=== PATIENT | female | born 1995 | race Caucasian/White ===

== ENCOUNTER 2016-06-21 14:18 | Emergency (ER) | payer MEDICAID ==
--- NOTE | 2016-06-21 14:32 | ER Document Report ---
ED Medical Screen (RME) - General Stated Complaint: SUICIDAL IDEATION Time seen by provider: 14:30 Mode of Arrival: Ambulatory Information source: Patient Notes: 21 yo female presents to ed for suicidal thoughts for years, today she is having a mental breakdown. Plans to use a gun and has access to one. TRAVEL OUTSIDE OF THE [place] 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
[2016-06-21 15:00] LABS: ABSOLUTE BASOPHILS # (AUTO) 0.1 10^3/uL (0.0-0.2); ABSOLUTE EOSINOPHILS # (AUTO) 0.1 10^3/uL (0.0-0.6); ABSOLUTE LYMPHOCYTES (AUTO) 1.5 10^3/uL (0.5-4.7); ABSOLUTE MONOCYTES (AUTO) 0.5 10^3/uL (0.1-1.4); ABSOLUTE NEUT (AUTO) 4.1 10^3/uL (1.7-8.2); BASOPHILS % (AUTO) 0.9 % (0-2); EOSINOPHILS % (AUTO) 0.8 % (0-6); HEMATOCRIT 44.1 % (36.0-47.0); HEMOGLOBIN 15.1 g/dL (12.0-15.5); HGB HCT DIFFERENCE 1.2; LYMPHOCYTES % (AUTO) 24.1 % (13-45); MEAN CORPUSCULAR HEMOGLOBIN 28.5 pg (27.0-33.4); MEAN CORPUSCULAR HGB CONC 34.2 g/dL (32.0-36.0); MEAN CORPUSCULAR VOLUME 83 fl (80-97); MONOCYTES % (AUTO) 8.3 % (3-13); RED BLOOD COUNT 5.29 10^6/uL (3.72-5.28); SEGMENTED NEUTROPHILS % (AUTO) 65.9 % (42-78); WHITE BLOOD COUNT 6.2 10^3/uL (4.0-10.5)
[2016-06-21 15:11] LABS: APPEARANCE,URINE SLIGHTLY-CLOUDY; BILIRUBIN,URINE NEGATIVE (NEGATIVE); GLUCOSE, URINE NEGATIVE (NEGATIVE); KETONES,URINE NEGATIVE (NEGATIVE); LEUKOCYTE ESTERASE,URINE NEGATIVE (NEGATIVE); NITRITE,URINE NEGATIVE (NEGATIVE); PROTEIN,URINE NEGATIVE (NEGATIVE); URINE SPECIFIC GRAVITY 1.004; UROBILINOGEN,URINE NEGATIVE mg/dL (<2.0)
[2016-06-21 15:19] LABS: ALANINE AMINOTRANSFERASE 34 U/L (9-52); ALCOHOL 35 mg/dL (NONE DETECTED); ALKALINE PHOSPHATASE 67 U/L (38-126); ANION GAP 15 (5-19); ASPARTATE AMINO TRANSFERASE 20 U/L (14-36); BILIRUBIN,TOTAL 0.7 mg/dL (0.2-1.3); BLOOD UREA NITROGEN 7 mg/dL (7-20); CALCIUM 10.2 mg/dL (8.4-10.2); CARBON DIOXIDE 23 mmol/L (22-30); CHLORIDE 107 mmol/L (98-107); CREATININE RESULT 0.65 mg/dL (0.52-1.25); GLUCOSE 71 mg/dL (75-110); POTASSIUM 4.2 mmol/L (3.6-5.0); SODIUM 145.1 mmol/L (137-145)
[2016-06-21 15:26] LABS: URINE BARBITURATES SCREEN NEGATIVE; URINE METHADONE SCREEN NEGATIVE; URINE PHENCYCLIDINE SCREEN NEGATIVE
[2016-06-21] MEDS ORDERED: FLUOXETINE HCL 20 MG CAPSULE PO ONE (19:17)
--- NOTE | 2016-06-21 19:21 | ER Document Report ---
ED General - General Chief Complaint: Suicidal Ideation Stated Complaint: SUICIDAL IDEATION Mode of Arrival: Ambulatory Notes: Patient is a 21-year-old female past medical history of anxiety and depression not currently on any medical therapies and apparently has not been on medications in the past who presents with suicidal ideation with a plan. Patient has access to a firearm and states that she planned to shoot herself. Her boyfriend apparently removed the gun from her possession today after she made this threat. States she has tried to hurt herself in the past by hanging approximately 2 years ago. She has never been hospitalized for mental health reasons. She denies any cause of the acute worsening of her suicidal thoughts or depression. Nothing seems to improve her symptoms. She denies any acute medical complaints. She has not seen a psychiatrist or primary care physician regarding today's concerns. TRAVEL OUTSIDE OF THE [place] 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 HENT: Negative for sore throat. Eyes: Negative for visual changes. Cardiovascular: Negative for chest pain. Respiratory: Negative for shortness of breath. Gastrointestinal: Negative for abdominal pain, vomiting or diarrhea. Genitourinary: Negative for dysuria. Musculoskeletal: Negative for back pain. Skin: Negative for rash. Neurological: Negative for headaches, weakness or numbness. 10 point ROS negative except as marked above and in HPI. Physical Exam - Vital signs Vitals: Temp Pulse Resp BP Pulse Ox 97.7 F 80 16 110/74 98 06/21/16 14:27 06/21/16 14:27 06/21/16 14:27 06/21/16 14:27 06/21/16 14:27 Interpretation: Normal Notes: PHYSICAL EXAMINATION: GENERAL: Well-appearing, well-nourished and in no acute distress. HEAD: Atraumatic, normocephalic. EYES: Pupils equal round and reactive to light, extraocular movements intact, sclera anicteric, conjunctiva are normal. ENT: nares patent, oropharynx clear without exudates. Moist mucous membranes. NECK: Normal range of motion, supple without lymphadenopathy LUNGS: Breath sounds clear to auscultation bilaterally and equal. No wheezes rales or rhonchi. HEART: Regular rate and rhythm without murmurs ABDOMEN: Soft, nontender, normoactive bowel sounds. No guarding, no rebound. No masses appreciated. EXTREMITIES: Normal range of motion, no pitting or edema. No cyanosis. NEUROLOGICAL: No focal neurological deficits. Moves all extremities spontaneously and on command. PSYCH: Depressed mood and affect. Poor eye contact. SKIN: Warm, Dry, normal turgor, no rashes or lesions noted. Course - Re-evaluation Re-evalutation: 06/21/16 19:18 She presents with suicidal ideation with a plan to shoot herself. Her boyfriend did remove her personal gun from her possession and states at this time given that she has no active mechanism to harm herself she is no longer suicidal. However patient does admit to a long-standing history of severe depression and anxiety which has never been treated with medical therapies in the past. She is also had multiple prior suicide attempts including 2 years ago by hanging. Patient meets clear criteria for diagnosis of major depressive disorder including daily hopelessness, lack of enjoyment her regular activities , lack of energy, and frequent suicidal thoughts. Given that she is not actively suicidal at this time, I do not believe she meets IVC criteria as she explicitly denies SI or plan at this time. However, patient is in agreement to staying in the emergency department for evaluation the morning. Patient denies any acute medical complaints and her medical screening laboratories are otherwise unremarkable. She is medically cleared for psychiatric evaluation. - Vital Signs Vital signs: Temp Pulse Resp BP Pulse Ox 97.9 F 95 18 110/78 100 06/21/16 18:13 06/21/16 18:13 06/21/16 18:13 06/21/16 18:13 06/21/16 18:13 - Laboratory Result Diagrams: 06/21/16 14:35 06/21/16 14:35 Laboratory results interpreted by me: 06/21/16 06/21/16 06/21/16 14:35 14:35 14:35 RBC 5.29 H Sodium 145.1 H Glucose 71 L Urine Blood LARGE H Salicylates < 1.0 L Acetaminophen < 10 L Discharge - Discharge Clinical Impression: Suicidal ideation Condition: Fair Disposition: PSYCH HOSP/UNIT Prescriptions: Fluoxetine HCl 20 mg PO DAILY #60 capsule Referrals: MARIA VICTORIA POLO MD [Primary Care Provider] - Follow up as needed
--- NOTE | 2016-06-21 19:48 | EKG REPORT ---
SEVERITY:- ABNORMAL ECG - SINUS RHYTHM ATRIAL PREMATURE COMPLEXES LEFT AXIS DEVIATION LEFT VENTRICULAR HYPERTROPHY : Confirmed by: Pamela Padgett 21-Jun-2016 19:48:20
--- NOTE | 2016-06-22 14:09 | ER Document Report ---
Doctor's Note Notes: 06/22/16 14:08 Case discussed with mental health worker. Patient has an appointment at [facility] on the and is once again reporting no suicidal homicidal ideations or audiovisual hallucinations. She is safe for discharge and outpatient follow-up next week
[2016-06-22 14:45] VITALS: BP 117/79
--- NOTE | 2016-06-24 10:30 | PSYCHOLOGICAL NOTE ---
Psych Note - Psych Note Psych Note: Patient presented to [facility] ED with suicidal ideation with a plan to shoot herself. Patient disclosed long-standing history of severe depression and anxiety which has never been treated with medical therapies in the past. She reports multiple prior suicide attempts including 2 years ago by hanging. Patient states that she had a plan and means to commit suicide; but is no longer suicidal. She continued to disclose that she had the gun and sent the picture of the gun to her boyfriend then sat and drank until he arrived. She continued to disclose that she has been feeling like this for a couple of years but normally her boyfriend is there to stop her. She states that because they argued he wasn't there at the time. Clinician confirmed patients at and waited for boyfriend to show up patient confirmed. Patient was unable to remember what the argument was about. When asked about previous events patient confirmed that she thought about hanging herself but didn't follow through. Clinician notes patient stated to physician that she attempted to kill herself by hanging. No rodriguez are visible on patients neck. Patience boyfriend Dillon disclose this is not the first time she has threatened suicide. They do have a appointment for her at [facility] on Saturday. Dillon agreed to be patient safety resource and has removed all weapons from the home. Patient is alert and oriented to person place time and Circumstance. Mood is euthymic with congruent affect period while patient denies homicidal ideation she endorses suicidal ideation. Commission notes that while patient states she had a plan and a means patient had no intent. Patient denies auditory and visual hallucinations. No delusions are noted. Thought process is logical organized and linear. Conversational speech is within normal rate tone and porosity. Eye contact was well-maintained. Intellectual abilities appear to be within normal range. Attention and concentration are fair. Insight, judgment, impulse control are fair. Depression per historyreported by patient Anxiety per history reported by patient Impression plan patient is psychiatrically cleared for discharge. While patient states she's suicidal with plan and means patient demonstrated no intent. Patient disclosed she and her boyfriend got into a argument and he wasn't home so she text him the picture so he would come home demonstrating manipulating behavior. Patient has mental health services out in the community with an appointment on Saturday. Patient is psychiatrically cleared for discharge Dr. Angel was consulted on this patient attending physician is in agreement with recommendations and disposition.
== END 2016-06-22 14:38 | disposition home or self-care (01) ==
LOC: ER 14:18
DX: F32.9 Major depressive disorder, single episode, unspecified (principal); R45.851 Suicidal ideations; Z91.5 Personal history of self-harm
CPT/HCPCS: 93005; 99285; 36415; 80307 ×4; 85025; 80053; 81001; 93010; J3490

== ENCOUNTER 2016-12-06 12:34 | Emergency (ER) | payer MEDICAID, OTHER ==
[2016-12-06] MEDS ORDERED: ONDANSETRON 4 MG TAB.RAPDIS PO ONE (13:24)
--- NOTE | 2016-12-06 13:26 | ER Document Report ---
ED Medical Screen (RME) - General Chief Complaint: Nausea/Vomiting Stated Complaint: VOMITING Time Seen by Provider: 12/06/16 13:19 Notes: Patient is complaining of vomiting since about midnight. After she has been vomiting a few times, she has noticed some blood in the vomitus. Total vomiting about 6 times. Has developed some pain in the right lower abdominal region. No diarrhea. Patient is , LMP 4/16. Only medication is vitamins. History of appendectomy. TRAVEL OUTSIDE OF THE [place] 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
[2016-12-06 14:01] LABS: ABSOLUTE LYMPHOCYTES (AUTO) 1.1 10^3/uL (0.5-4.7); ABSOLUTE MONOCYTES (AUTO) 0.6 10^3/uL (0.1-1.4); ABSOLUTE NEUT (AUTO) 8.8 10^3/uL (1.7-8.2); BASOPHILS % (AUTO) 0.4 % (0-2); EOSINOPHILS % (AUTO) 0.1 % (0-6); HEMATOCRIT 44.5 % (36.0-47.0); HGB HCT DIFFERENCE 0.5; LYMPHOCYTES % (AUTO) 10.4 % (13-45); MEAN CORPUSCULAR HEMOGLOBIN 28.9 pg (27.0-33.4); MEAN CORPUSCULAR HGB CONC 33.6 g/dL (32.0-36.0); MEAN CORPUSCULAR VOLUME 86 fl (80-97); RED BLOOD COUNT 5.18 10^6/uL (3.72-5.28); RED CELL DISTRIBUTION WIDTH 14.3 % (11.5-14.0); SEGMENTED NEUTROPHILS % (AUTO) 83.1 % (42-78); WHITE BLOOD COUNT 10.5 10^3/uL (4.0-10.5)
[2016-12-06 14:18] LABS: APPEARANCE,URINE CLOUDY; BILIRUBIN,URINE NEGATIVE (NEGATIVE); GLUCOSE, URINE NEGATIVE (NEGATIVE); KETONES,URINE 20 mg/dL (NEGATIVE); LEUKOCYTE ESTERASE,URINE NEGATIVE (NEGATIVE); NITRITE,URINE NEGATIVE (NEGATIVE); PROTEIN,URINE 30 mg/dL (NEGATIVE); URINE SPECIFIC GRAVITY 1.028; UROBILINOGEN,URINE NEGATIVE mg/dL (<2.0)
[2016-12-06 14:23] LABS: ALANINE AMINOTRANSFERASE 65 U/L (9-52); ALBUMIN 4.7 g/dL (3.5-5.0); ALKALINE PHOSPHATASE 77 U/L (38-126); ANION GAP 14 (5-19); ASPARTATE AMINO TRANSFERASE 36 U/L (14-36); BILIRUBIN,DIRECT 0.3 mg/dL (0.0-0.4); BILIRUBIN,TOTAL 0.8 mg/dL (0.2-1.3); BLOOD UREA NITROGEN 9 mg/dL (7-20); CALCIUM 10.1 mg/dL (8.4-10.2); CARBON DIOXIDE 22 mmol/L (22-30); CHLORIDE 103 mmol/L (98-107); CREATININE RESULT 0.54 mg/dL (0.52-1.25); GLUCOSE 78 mg/dL (75-110); LIPASE 110.9 U/L (23-300); POTASSIUM 4.4 mmol/L (3.6-5.0); SODIUM 139.3 mmol/L (137-145); TOTAL PROTEIN 8.1 g/dL (6.3-8.2)
[2016-12-06] MEDS ORDERED: NORMAL SALINE 1000 ML 1,000 ML IV PRN (14:31)
[2016-12-06] MEDS ORDERED: DEXTROSE 5%-NORMAL SALINE 1,000 ML IV ONE ×2 (14:56→14:57)
[2016-12-06] MEDS ORDERED: DIPHENHYDRAMINE HCL 50 MG/ML VIAL IV ONE (14:58)
[2016-12-06] MEDS ORDERED: METOCLOPRAMIDE HCL INJ/PF 10 MG/2 ML SDV IV ONE (14:58)
--- NOTE | 2016-12-06 15:00 | ER Document Report ---
ED General - General Chief Complaint: Nausea/Vomiting Stated Complaint: VOMITING Time Seen by Provider: 12/06/16 13:19 Mode of Arrival: Ambulatory Information source: Patient Notes: This is a 21-year-old female 3 para 1 approximately 8-9 weeks ( found out at the health department). Patient presents with multiple episodes of vomiting, not tolerating fluids. Patient states he was small amount of blood in the last time she vomited. TRAVEL OUTSIDE OF THE [place] IN LAST 30 DAYS: No - HPI Onset: Yesterday Onset/Duration: Gradual Quality of pain: Cramping Severity: None Pain Level: Denies Associated symptoms: denies: Chest pain, Fever, Shortness of breath Exacerbated by: Denies Relieved by: Denies Similar symptoms previously: No Recently seen / treated by doctor: No - Related Data Allergies/Adverse Reactions: No Known Allergies Allergy (Verified 12/06/16 12:51) Past Medical History - General Information source: Patient - Social History Smoking Status: Never Smoker Cigarette use (# per day): No Chew tobacco use (# tins/day): No Frequency of alcohol use: None Drug Abuse: None Lives with: Family Family History: Reviewed & Not Pertinent Patient has suicidal ideation: No Patient has homicidal ideation: No - Medical History Medical History: Negative Renal/ Medical History: Denies: Hx Peritoneal Dialysis Past Surgical History: Reports: Hx Appendectomy, Hx Cardiac Surgery - 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 that were repai - Immunizations Hx Diphtheria, Pertussis, Tetanus Vaccination: No Review of Systems - Review of Systems Constitutional: denies: Chills, Fever EENT: No symptoms reported Cardiovascular: No symptoms reported Respiratory: No symptoms reported Gastrointestinal: See HPI Genitourinary: No symptoms reported Female Genitourinary: No symptoms reported Musculoskeletal: No symptoms reported Skin: No symptoms reported Hematologic/Lymphatic: No symptoms reported Neurological/Psychological: No symptoms reported Physical Exam - Vital signs Vitals: Temp Pulse Resp BP Pulse Ox 98.5 F 64 16 126/75 H 98 12/06/16 12:51 12/06/16 12:51 12/06/16 12:51 12/06/16 12:51 12/06/16 12:51 Notes: Physical exam: GENERAL: 21-year-old female, alert and oriented 3, no acute distress HEAD: Atraumatic, normocephalic. EYES: Pupils equal round and reactive to light, extraocular movements intact, sclera anicteric, conjunctiva are normal. ENT: TMs normal, nares patent, oropharynx clear without exudates. Moist mucous membranes. NECK: Normal range of motion, supple without lymphadenopathy or JVD. LUNGS: Breath sounds clear to auscultation bilaterally and equal. No wheezes rales or rhonchi. HEART: Regular rate and rhythm without murmurs, rubs or gallops. ABDOMEN: Soft, normoactive bowel sounds. No tenderness to palpation. No guarding, no rebound. No masses appreciated. EXTREMITIES: Normal range of motion, no pitting or edema. No clubbing or cyanosis. NEUROLOGICAL: Cranial nerves II through XII grossly intact. Normal speech, normal gait. PSYCH: Normal mood, normal affect. SKIN: Warm, Dry, normal turgor, no rashes or lesions noted. Course - Re-evaluation Re-evalutation: 12/06/16 22:34 Looks much better after IV fluids, she has had no further vomiting. - Vital Signs Vital signs: Temp Pulse Resp BP Pulse Ox 98.3 F 60 16 111/56 L 100 12/06/16 19:35 12/06/16 19:35 12/06/16 19:35 12/06/16 19:35 12/06/16 19:35 - Laboratory Result Diagrams: 12/06/16 13:35 12/06/16 13:35 Laboratory results interpreted by me: 12/06/16 12/06/16 12/06/16 13:35 13:35 13:35 RDW 14.3 H Seg Neutrophils % 83.1 H Lymphocytes % 10.4 L Absolute Neutrophils 8.8 H ALT 65 H Beta HCG, Quant 865759.00 H Urine Protein 30 H Urine Ketones 20 H - Diagnostic Test Radiology reviewed: Image reviewed, Reports reviewed - Sound shows an intrauterine gestation at 7 weeks 2 days with good heartbeat Discharge - Discharge Clinical Impression: Hyperemesis gravidarum Condition: Stable Disposition: HOME, SELF-CARE Instructions: Hyperemesis Gravidarum ([facility]) Additional Instructions: We discussed, the ultrasound revealed a 7 week gestation baby in the right place with a good heartbeat. These are good findings. Recommendations for nausea in : Drink plenty of fluids. Advance diet slowly. Eat small, frequent meals. The following have been found helpful for nausea in : Vitamin B 6 Unisom (sold [id number]): The active ingredient is Doxylamine. Peppermint and ruslan products. Sea bands. Take Reglan and benadryl as needed for nausea. Return to the ER for worsening vomiting, not able to tolerate liquids or concerns are getting worse. Prescriptions: Diphenhydramine HCl [Benadryl] 25 mg PO Q6HP PRN #20 capsule PRN Reason: Metoclopramide HCl [Reglan 10 mg Tablet] 1 - 2 tab PO ASDIR PRN #25 tablet PRN Reason: Referrals: MARIA VICTORIA POLO MD [Primary Care Provider] - Follow up in 1 week
--- NOTE | 2016-12-06 18:20 | RADIOLOGY REPORT (SQ) ---
EXAM DESCRIPTION: U/S OB TRANSVAG W/DOPPLER COMPLETED DATE/TIME: 12/06/2016 6:05 pm REASON FOR STUDY: first tri vomiting, cramping COMPARISON: None. TECHNIQUE: Transvaginal static and realtime grayscale images acquired of the pelvis. Additional vicky cted spectral and color Doppler images recorded. All images stored on PACs. [id number] LIMITATIONS: None. FINDINGS: FETUS: Living intrauterine . EGA: 7 weeks 2 days KANE: 07/23/2017 FHR: 141 beats per minute. SUBCHORIONIC BLEED: Yes SIZE OF BLEED: 3.4 x 2.4 x 1.1 cm UTERUS: No masses. No anomalies. CERVICAL LENGTH: 3.5 cm Closed. RIGHT ADNEXA: Normal ovary with normal vascular flow. No adnexal free fluid. No adnexal masses. LEFT ADNEXA: Normal ovary with normal vascular flow. No adnexal free fluid. No adnexal masses. FREE FLUID: None. OTHER: No other significant finding. IMPRESSION: LIVING INTRAUTERINE . EGA 7 weeks 2 days Trimester of : First - 0 to 13 weeks. TECHNICAL DOCUMENTATION: JOB ID: [id number] [employer]- All Rights Reserved
[2016-12-06 19:40] VITALS: BP 111/56
== END 2016-12-06 19:45 | disposition home or self-care (01) ==
LOC: ER 12:34
DX: O21.0 Mild hyperemesis gravidarum (principal); Z3A.01 Less than 8 weeks gestation of pregnancy
CPT/HCPCS: 99284; 96375; 96365; 96366; 36415; 84702; 83690; 85025; 80053; 81001; 76817; 93976; J1200; S0119; J2765

== ENCOUNTER 2017-05-21 22:51 | Outpatient (CLI) | payer MEDICAID ==
[2017-05-21 23:38] LABS: APPEARANCE,URINE CLOUDY; BILIRUBIN,URINE NEGATIVE (NEGATIVE); GLUCOSE, URINE NEGATIVE (NEGATIVE); KETONES,URINE TRACE mg/dL (NEGATIVE); LEUKOCYTE ESTERASE,URINE NEGATIVE (NEGATIVE); NITRITE,URINE NEGATIVE (NEGATIVE); PROTEIN,URINE 30 mg/dL (NEGATIVE)
[2017-05-21 23:42] LABS: BACTERIA,URINE 3+ /HPF; RBC,URINE RARE /HPF
[2017-05-21 23:46] LABS: URINE BARBITURATES SCREEN NEGATIVE; URINE METHADONE SCREEN NEGATIVE; URINE OPIATES LOW NEGATIVE; URINE PHENCYCLIDINE SCREEN NEGATIVE
== END 2017-05-22 00:17 | disposition home or self-care (01) ==
LOC: LC 22:51
PROVIDERS: ATTEND Obstetrics & Gynecology
PROC: 4A1HXCZ Monitoring of Products of Conception, Cardiac Rate, External Approach (ICD-10-PCS; principal; 2017-05-21)
DX: O47.03 False labor before 37 completed weeks of gestation, third trimester (principal); Z3A.31 31 weeks gestation of pregnancy
CPT/HCPCS: 59025; 80307; 81001

== ENCOUNTER 2017-05-29 13:51 | Emergency (ER) | payer MEDICAID ==
[2017-05-29 13:57] VITALS: BP 115/65
--- NOTE | 2017-05-29 14:39 | ER Document Report ---
ED ENT - General Chief Complaint: Difficulty Swallowing Stated Complaint: PAIN WHEN SWALLOWING Time Seen by Provider: 05/29/17 14:35 Mode of Arrival: Ambulatory Information source: Patient Notes: Patient reports 2-3 days of central chest pain and a nonproductive cough. Some nausea. Some sore throat with swallowing. Her pain is worse with coughing or moving better with rest. It is intermittent. It is mild to moderate. There is no significant radiation of the pain. She has had some low-grade fevers and sweats. She is currently 32 weeks but has no abdominal pain or vaginal bleeding. TRAVEL OUTSIDE OF THE [place] 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 denies: Short of breath Physical Exam - Vital signs Vitals: Temp Pulse Resp BP Pulse Ox 98.2 F 104 H 18 115/65 97 05/29/17 13:56 05/29/17 13:56 05/29/17 13:56 05/29/17 13:56 05/29/17 13:56 Interpretation: Tachycardic - General General appearance: Appears well, Alert In distress: None - HEENT Head: Normocephalic, Atraumatic Eyes: Normal Pupils: PERRL Mouth/Lips: Normal Mucous membranes: Moist Pharynx: Erythema. No: Exudate Neck: Normal - Respiratory Respiratory status: No respiratory distress Chest status: Nontender Breath sounds: Normal Chest palpation: Normal - Cardiovascular Rhythm: Regular Heart sounds: Normal auscultation Murmur: No - Abdominal Inspection: Normal Distension: No distension Bowel sounds: Normal Tenderness: Nontender Organomegaly: No organomegaly - Back Back: Normal, Nontender - Extremities General upper extremity: Normal inspection, Nontender, Normal color, Normal ROM , Normal temperature General lower extremity: Normal inspection, Nontender, Normal color, Normal ROM , Normal temperature, Normal weight bearing. No: Edilberto's sign - Neurological Neuro grossly intact: Yes Cognition: Normal Orientation: AAOx4 [place] Coma Scale Eye Opening: Spontaneous [place] Coma Scale Verbal: Oriented [place] Coma Scale Motor: Obeys Commands [place] Coma Scale Total: 15 Speech: Normal Motor strength normal: LUE, RUE, LLE, RLE Sensory: Normal - Psychological Associated symptoms: Normal affect, Normal mood - Skin Skin Temperature: Warm Skin Moisture: Dry Skin Color: Normal Course - Vital Signs Vital signs: Temp Pulse Resp BP Pulse Ox 98.2 F 104 H 18 115/65 97 05/29/17 13:56 05/29/17 13:56 05/29/17 13:56 05/29/17 13:56 05/29/17 13:56 Discharge - Discharge Clinical Impression: URI (upper respiratory infection) Qualifiers: URI type: unspecified URI Qualified Code(s): J06.9 - Acute upper respiratory infection, unspecified Condition: Stable Disposition: HOME, SELF-CARE Instructions: Acetaminophen, Upper Respiratory Illness ([facility]) Prescriptions: Cefdinir 300 mg PO BID #14 capsule
== END 2017-05-29 14:44 | disposition home or self-care (01) ==
LOC: ER 13:51
DX: J06.9 Acute upper respiratory infection, unspecified (principal); R13.10 Dysphagia, unspecified; R07.9 Chest pain, unspecified; R05 Cough; R11.0 Nausea; J02.9 Acute pharyngitis, unspecified; R50.9 Fever, unspecified; Z3A.32 32 weeks gestation of pregnancy
CPT/HCPCS: 99283

== ENCOUNTER 2017-05-30 18:47 | Emergency (ER) | payer MEDICAID ==
--- NOTE | 2017-05-30 19:24 | ER Document Report ---
ED General - General Chief Complaint: Chest Congestion Stated Complaint: COUGH Time Seen by Provider: 05/30/17 19:23 Mode of Arrival: Ambulatory Information source: Patient Notes: Patient is a 21 year old female who presents with 3-4 day history of nonproductive cough, chest tightness with cough, ear pain and congestion. She is currently 32 weeks and denies any abdominal pain, vaginal bleeding or discharge, loss of fluids. She states she was seen here by a doctor and told she had an upper respiratory infection and given prescription for Cefdinir which she endorses medication compliance. She states she was called today by krish Wagoner and asked if she is feeling better; when she told him no he advised that she return to the ED for blood work and a chest x-ray. She states her congestion is no better and is still coughing but she denies any subjective fevers or chills. She denies any nausea vomiting or diarrhea. Denies any neck pain or neck stiffness. TRAVEL OUTSIDE OF THE [place] 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 that were repai - Immunizations Hx Diphtheria, Pertussis, Tetanus Vaccination: No Review of Systems - Review of Systems Constitutional: See HPI EENT: See HPI Cardiovascular: No symptoms reported Respiratory: See HPI Gastrointestinal: No symptoms reported Genitourinary: No symptoms reported Female Genitourinary: No symptoms reported Musculoskeletal: No symptoms reported Skin: No symptoms reported Hematologic/Lymphatic: No symptoms reported Neurological/Psychological: No symptoms reported Physical Exam - Vital signs Vitals: Temp Pulse Resp BP Pulse Ox 99.0 F 99 20 120/70 99 05/30/17 19:11 05/30/17 19:11 05/30/17 19:11 05/30/17 19:11 05/30/17 19:11 - Notes Notes: PHYSICAL EXAM: CONSTITUTIONAL: Alert and oriented, well-appearing and in no acute distress. Temp is 99 in triage, not tachycardic, O2 sat 99% on room air. She is speaking in full sentences without difficulty. She is nontoxic in appearance. HENT: Normocephalic, atraumatic. Ear canals without erythema or foreign body, TMs pearly pruett with good bony landmarks. Nares clear without erythema, septal hematoma or deviation, airway patent. Oropharynx clear without erythema, tonsilar exudate or malocclusion. Trachea midline. Uvula midline. Moist mucous membranes. EYES: Pupils equal round and reactive to light, EOM intact. Sclera anicteric, conjunctiva are normal. No entrapment. NECK: supple without lymphadenopathy. No midline tenderness or paraspinous muscle spasms. ROM intact. No nuchal rigidity, negative Kernig's and Brudzinski 's. HEART: Regular rate and rhythm without murmurs. LUNGS: Coarse breath sounds bilaterally in all lobes. No wheezing. GI: Gravid abdomen. Normactive bowel sounds. Nontender, non-distended. No organomegaly. no CVAT. BACK: nontender, no paraspinous spasm, 5+/5 strengths, DTRs 2+, SLR -. EXTREMITIES: Normal range of motion, no pitting edema. No cyanosis. Cap Refill < 3 seconds. NEURO: Cranial nerves grossly intact. Normal sensory/motor exams. PSYCH: Normal mood, normal affect. SKIN: Warm and dry. Normal turgor. No rashes or lesions noted. Course - Re-evaluation Re-evalutation: 05/30/17 19:37 Patient seen and examined. She is nontoxic in appearance, O2 sat is 99% on room air. She does have coarse breath sounds bilaterally but no wheezing. She is speaking in full sentences without difficulty. X-ray of chest reviewed results which was negative for acute opacity or infiltrate or fluid, discussed results with patient. Lab work obtained, no elevated white blood cell count or bandemia. H&H baseline. Electrolytes unremarkable. Influenza negative. Discussed results with patient. Advised to follow-up with [facility] for any over- the-counter medications are safe during or any recommendations they may have. Return precautions given. Advised to continue antibiotics as discussed. At this time, will discharge with return precautions and follow-up recommendations. Verbal discharge instructions given at the bedside and opportunity for questions given. Medication warnings reviewed. Patient is in agreement with this plan and has verbalized understanding of return precautions and the need for primary care follow-up in the next 24-72 hours. I have consulted with the supervisory physician per [facility] guidelines. - Vital Signs Vital signs: Temp Pulse Resp BP Pulse Ox 99.0 F 99 20 120/70 99 05/30/17 19:11 05/30/17 19:11 05/30/17 19:11 05/30/17 19:11 05/30/17 19:11 - Laboratory Result Diagrams: 05/30/17 19:50 05/30/17 19:50 Laboratory results interpreted by me: 05/30/17 05/30/17 19:50 19:50 Hgb 10.6 L Hct 31.5 L RDW 14.9 H Lymphocytes % 9.7 L Carbon Dioxide 20 L BUN 6 L Creatinine 0.49 L - Diagnostic Test Radiology reviewed: Image reviewed, Reports reviewed Discharge - Discharge Clinical Impression: Viral URI with cough Condition: Stable Disposition: HOME, SELF-CARE Additional Instructions: Take medications as directed. Your chest x-ray today did not show any signs of pneumonia or fluid overload. Your lab work did not show signs of infection. Follow-up with [facility]. Return if symptoms worsen.
--- NOTE | 2017-05-30 19:55 | RADIOLOGY REPORT (SQ) ---
EXAM DESCRIPTION: CHEST PA/LAT COMPLETED DATE/TIME: 05/30/2017 7:41 pm REASON FOR STUDY: cough COMPARISON: None. EXAM PARAMETERS: NUMBER OF VIEWS: two views TECHNIQUE: Digital Frontal and Lateral radiographic views of the chest acquired. RADIATION DOSE: NA LIMITATIONS: none FINDINGS: LUNGS AND PLEURA: No opacities, masses or pneumothorax. No pleural effusion. MEDIASTINUM AND HILAR STRUCTURES: No masses or contour abnormalities. HEART AND VASCULAR STRUCTURES: Heart normal size. No evidence for failure. BONES: No acute findings. HARDWARE: Sternotomy wires. OTHER: No other significant finding. IMPRESSION: NO SIGNIFICANT RADIOGRAPHIC FINDING IN THE CHEST. TECHNICAL DOCUMENTATION: JOB ID: [id number] [employer]- All Rights Reserved
[2017-05-30 20:00] LABS: ABSOLUTE EOSINOPHILS # (AUTO) 0.1 10^3/uL (0.0-0.6); ABSOLUTE LYMPHOCYTES (AUTO) 0.8 10^3/uL (0.5-4.7); ABSOLUTE NEUT (AUTO) 6.7 10^3/uL (1.7-8.2); BASOPHILS % (AUTO) 0.6 % (0-2); HEMATOCRIT 31.5 % (36.0-47.0); HEMOGLOBIN 10.6 g/dL (12.0-15.5); HGB HCT DIFFERENCE 0.3; LYMPHOCYTES % (AUTO) 9.7 % (13-45); MEAN CORPUSCULAR HEMOGLOBIN 27.6 pg (27.0-33.4); MEAN CORPUSCULAR HGB CONC 33.5 g/dL (32.0-36.0); MEAN CORPUSCULAR VOLUME 82 fl (80-97); MONOCYTES % (AUTO) 11.8 % (3-13); RED BLOOD COUNT 3.83 10^6/uL (3.72-5.28); RED CELL DISTRIBUTION WIDTH 14.9 % (11.5-14.0); SEGMENTED NEUTROPHILS % (AUTO) 76.9 % (42-78); WHITE BLOOD COUNT 8.8 10^3/uL (4.0-10.5)
[2017-05-30 20:19] LABS: ANION GAP 12 (5-19); BLOOD UREA NITROGEN 6 mg/dL (7-20); CALCIUM 9.2 mg/dL (8.4-10.2); CARBON DIOXIDE 20 mmol/L (22-30); CHLORIDE 106 mmol/L (98-107); CREATININE RESULT 0.49 mg/dL (0.52-1.25); GLUCOSE 77 mg/dL (75-110); POTASSIUM 4.1 mmol/L (3.6-5.0); SODIUM 137.9 mmol/L (137-145)
[2017-05-30 20:53] VITALS: BP 122/71
== END 2017-05-30 20:51 | disposition home or self-care (01) ==
LOC: ER 18:47
DX: O99.513 Diseases of the respiratory system complicating pregnancy, third trimester (principal); J06.9 Acute upper respiratory infection, unspecified; B97.89 Other viral agents as the cause of diseases classified elsewhere; O26.893 Other specified pregnancy related conditions, third trimester; R05 Cough; R07.89 Other chest pain; H92.09 Otalgia, unspecified ear; R09.89 Other specified symptoms and signs involving the circulatory and respiratory systems; Z3A.32 32 weeks gestation of pregnancy
CPT/HCPCS: 36415; 71020; 80048; 85025; 87804; 99283

== ENCOUNTER 2017-07-03 15:32 | Outpatient (CLI) | payer MEDICAID ==
--- NOTE | 2017-07-03 15:34 | Non Stress Test Report ---
Non Stress Test Datetime Report Generated by CPN: 07/03/2017 15:33 DEMOGRAPHIC EGA NST: 31.5 INDICATION Indication for Study: Ordered by Provider MONITORING Monitor Explained: Monitor Explained; Test Explained; Patient Verbalized Understanding Time on Monitor: 05/21/2017 23:08 Time off Monitor: 05/22/2017 00:08 NST Duration: 60 NST INTERVENTIONS NST Interventions: PO Hydration; Reposition Patient Physician Notified NST: Dr. Dennis BABY A: [id number] BABY A Movement : Present Contraction Frequency : none noted FHR Baseline : 115 Accelerations : 15X15 Decelerations : None Variability : Moderate 6-25bpm NST Review: Meets Criteria for Reactive NST NST Review and Verified By : Sana White RN NST Results: Reactive NST REPORT Report Trigger: Send Report
[2017-07-03 16:14] LABS: APPEARANCE,URINE CLOUDY; BILIRUBIN,URINE NEGATIVE (NEGATIVE); COLOR,URINE YELLOW; GLUCOSE, URINE NEGATIVE (NEGATIVE); KETONES,URINE NEGATIVE (NEGATIVE); LEUKOCYTE ESTERASE,URINE MODERATE (NEGATIVE); NITRITE,URINE NEGATIVE (NEGATIVE); PROTEIN,URINE NEGATIVE (NEGATIVE); URINE SPECIFIC GRAVITY 1.005; UROBILINOGEN,URINE NEGATIVE mg/dL (<2.0)
[2017-07-03 16:29] LABS: URINE AMPHETAMINES SCREEN NEGATIVE; URINE BARBITURATES SCREEN NEGATIVE; URINE BENZODIAZEPINES SCREEN NEGATIVE; URINE COCAINE SCREEN NEGATIVE; URINE MARIJUANA (THC) SCREEN NEGATIVE; URINE METHADONE SCREEN NEGATIVE; URINE PHENCYCLIDINE SCREEN NEGATIVE
--- NOTE | 2017-07-03 16:31 | Non Stress Test Report ---
Non Stress Test Datetime Report Generated by CPN: 07/03/2017 16:31 DEMOGRAPHIC EGA NST: 37.6 INDICATION Indication for Study: Ordered by Provider Indication for Study (NST) Other: LC MONITORING Monitor Explained: Monitor Explained; Test Explained; Patient Verbalized Understanding Time on Monitor: 07/03/2017 15:55 Time off Monitor: 07/03/2017 16:28 NST Duration: 33 NST INTERVENTIONS NST Interventions: PO Hydration Physician Notified NST: A. EMmel, CNM BABY A Movement : Present Contraction Frequency : irreg FHR Baseline : 115 Accelerations : 15X15 Decelerations : None Variability : Moderate 6-25bpm NST Review: Meets Criteria for Reactive NST NST Review and Verified By : Dwight Montgomery RN NST Results: Reactive NST REPORT Report Trigger: Send Report
== END 2017-07-03 16:39 | disposition home or self-care (01) ==
LOC: LC 15:32
PROVIDERS: ATTEND Obstetrics & Gynecology Gynecology
PROC: 4A1HXCZ Monitoring of Products of Conception, Cardiac Rate, External Approach (ICD-10-PCS; principal; 2017-07-03)
DX: O47.1 False labor at or after 37 completed weeks of gestation (principal); Z3A.37 37 weeks gestation of pregnancy
CPT/HCPCS: 59025; 80307; 81005

== ENCOUNTER 2017-07-20 12:20 | Inpatient (IN) | payer MEDICAID ==
[2017-07-20] MEDS ORDERED: RINGERS SOLUTION,LACTATED 1,000 ML IV PRN (12:45)
[2017-07-20 12:56] LABS: APPEARANCE,URINE CLOUDY; BILIRUBIN,URINE NEGATIVE (NEGATIVE); COLOR,URINE YELLOW; GLUCOSE, URINE NEGATIVE (NEGATIVE); KETONES,URINE NEGATIVE (NEGATIVE); LEUKOCYTE ESTERASE,URINE LARGE (NEGATIVE); NITRITE,URINE NEGATIVE (NEGATIVE); PROTEIN,URINE NEGATIVE (NEGATIVE); URINE SPECIFIC GRAVITY 1.017; UROBILINOGEN,URINE NEGATIVE mg/dL (<2.0)
[2017-07-20 13:04] LABS: AMNISURE (ROM) NEGATIVE (NEGATIVE)
[2017-07-20 13:13] LABS: URINE AMPHETAMINES SCREEN NEGATIVE; URINE BARBITURATES SCREEN NEGATIVE; URINE BENZODIAZEPINES SCREEN NEGATIVE; URINE COCAINE SCREEN NEGATIVE; URINE MARIJUANA (THC) SCREEN NEGATIVE; URINE METHADONE SCREEN NEGATIVE; URINE PHENCYCLIDINE SCREEN NEGATIVE
[2017-07-20 13:42] LABS: ABSOLUTE EOSINOPHILS # (AUTO) 0.1 10^3/uL (0.0-0.6); ABSOLUTE LYMPHOCYTES (AUTO) 1.1 10^3/uL (0.5-4.7); ABSOLUTE MONOCYTES (AUTO) 0.6 10^3/uL (0.1-1.4); ABSOLUTE NEUT (AUTO) 5.4 10^3/uL (1.7-8.2); BASOPHILS % (AUTO) 0.6 % (0-2); EOSINOPHILS % (AUTO) 1.2 % (0-6); HEMATOCRIT 28.4 % (36.0-47.0); HEMOGLOBIN 9.4 g/dL (12.0-15.5); LYMPHOCYTES % (AUTO) 14.8 % (13-45); MEAN CORPUSCULAR HEMOGLOBIN 24.9 pg (27.0-33.4); MEAN CORPUSCULAR VOLUME 75 fl (80-97); MONOCYTES % (AUTO) 8.7 % (3-13); PLATELET COUNT 246 10^3/uL (150-450); RED BLOOD COUNT 3.78 10^6/uL (3.72-5.28); RED CELL DISTRIBUTION WIDTH 17.4 % (11.5-14.0); SEGMENTED NEUTROPHILS % (AUTO) 74.7 % (42-78); TOTAL CELLS COUNTED % (AUTO) 100 %; WHITE BLOOD COUNT 7.2 10^3/uL (4.0-10.5)
[2017-07-20] MEDS ORDERED: EPHEDRINE SULFATE INJ 50 MG/1 ML AMPULE ONE (14:19)
[2017-07-20] MEDS ORDERED: FENTANYL/BUPIVACAINE/NS/PF 200 MCG/100 ML RTUINJ EPI ONE (14:20)
[2017-07-20] MEDS ORDERED: BUPIVACAINE HCL 0.25 % INJ/PF (2.5 MG/1 ML) 30 ML VIAL ONE (14:20)
[2017-07-20] MEDS ORDERED: OXYTOCIN/NORMAL SALINE 20 UNIT/1,000 ML RTUINJ IV PRN ×2 (15:15→19:09)
[2017-07-20] MEDS ORDERED: LIDOCAINE 1% INJ-PF (10 MG/ML) 30 ML SDV ONE (15:18)
[2017-07-20] MEDS ORDERED: MISOPROSTOL 0.2 MG TABLET ONE (15:18)
[2017-07-20] MEDS ORDERED: OXYTOCIN/NORMAL SALINE 20 UNIT/1,000 ML RTUINJ ONE ×2 (15:18→19:40)
[2017-07-20] MEDS ORDERED: HYDROCODONE/ACETAMINOPHEN 5-325 MG TABLET PO PRN (19:09)
[2017-07-20] MEDS ORDERED: BENZOCAINE/MENTHOL AEROSOL SPRAY 56 ML TOP PRN (19:09)
[2017-07-20] MEDS ORDERED: DIPH/PERTUSS(ACELL)/TETANUS VAC/PF 0.5 ML SYR (>=10YO) IM PRN (19:09)
[2017-07-20] MEDS ORDERED: MEASLES,MUMPS&RUBELLA VACC/PF 0.5 ML VIAL SUBCUT PRN (19:09)
[2017-07-20] MEDS ORDERED: DIBUCAINE 1% OINTMENT 28 GM TP PRN (19:09)
[2017-07-20] MEDS ORDERED: ZOLPIDEM TARTRATE 5 MG TABLET PO PRN (19:09)
[2017-07-20] MEDS ORDERED: ONDANSETRON HCL 8 MG TABLET PO PRN (19:10)
[2017-07-20] MEDS ORDERED: DIPHENHYDRAMINE HCL 25 MG CAPSULE PO PRN (19:11)
[2017-07-20] MEDS ORDERED: ACETAMINOPHEN 325 MG TABLET PO PRN (19:11)
[2017-07-20] MEDS ORDERED: PRAMOXINE HCL/MINERAL OIL/ZNOX OINT 28.3 GM PR PRN (19:18)
[2017-07-20] MEDS ORDERED: GLYCERIN/WITCH HAZEL LEAF 1 EACH MED..PAD TP PRN (19:18)
[2017-07-20] MEDS ORDERED: IBUPROFEN 800 MG TABLET ONE (19:57)
[2017-07-20] MEDS: IBUPROFEN 800 MG TABLET PO SCH (19:58)
--- NOTE | 2017-07-20 22:27 | Admission Physical ---
Datetime Report Generated by CPN: 07/20/2017 22:27 CURRENT ADMISSION Chief Complaint: Uterine Contractions Indication for Induction: Not Applicable Indication for Induction: Postterm, Intrauterine ; Active Labor Admit Plan: Admit to Unit; Initiate Labor Protocol ALLERGIES Medication Allergies: No Medication Allergies: No Known Allergies (07/20/2017) Medication Allergies: No Known Allergies (07/03/2017) Medication Allergies: No Known Allergies (05/30/2017) Medication Allergies: No Known Allergies (05/22/2017) Medication Allergies: No Known Allergies (12/06/2016) Latex: No Latex Allergies Food Allergies: None Environmental Allergies: None OBSTETRICAL HISTORY EDC: 07/18/2017 00:00 : 3 Para: 1 Term: 1 : 0 SAB: 1 IAB: 0 Ectopic: 0 Livin Cesareans: 0 VBACs: 0 Multiple Births: 0 Gestational Diabetes: No Rh Sensitization: No Incompetent Cervix: No MONIQUE: No Infertility: No ART Treatment: No Uterine Anomaly: No IUGR: No Hx Previous C/S: No Macrosomia: No Hx Loss/Stillborn: No PIH: No Hx : No Placenta Previa/Abruption: No Depression/PP Depression: Yes PTL/PROM: No Post Hemorrhage: No Current Procedures: Ultrasound Obstetrical History Comments: G1- SAB 6weeks G2- vaginal 39 weeks, epidural G3- current SEE RECORDS Alcohol: No Marijuana : No Cocaine: No Other Illicit Drugs: No Cigarettes: Former Smoker. [id number] MEDICAL HISTORY Diabetes: No Blood Transfusion: No Pulmonary Disease (Asthma, TB): No Breast Disease: No Hypertension: No Payroll Processor Surgery: No Heart Disease: No Hosp/Surgery: Yes Autoimmune Disorder: No Anesthetic Complications: No Kidney Disease: No Abnormal Pap Smear: No Neuro/Epilepsy: No Psychiatric Disorders: Yes Other Medical Diseases: No Hepatitis/Liver Disease: No Significant Family History: No Varicosities/Phlebitis: No Trauma/Violence : No Thyroid Dysfunction: No Medical History Comments: Heart murmur, open heart surgery at 6mo, depression, PTSD, anxiety, appendectomy 2013, 3cm right neck mass (had ENT consult, biopsy done, will remove after delivery) INFECTIOUS HISTORY Gonorrhea: No Genital Herpes: No Chlamydia: No Tuberculosis: No Syphilis: No Hepatitis: No HIV/AIDS Exposure: No Rash or Viral Illness: No HPV: No PHYSICAL EXAM General: Normal HEENT: Normal Neurologic: Normal Heart: Normal Lungs: Normal Abdomen: Normal Genitourinary Exam: Normal Extremities: Normal Pelvic Type: Adequate Vital Signs: Reviewed; Within Normal Limits VAGINAL EXAM Dilatation: 5 Contraction Comments: q 5 min MEMBRANES Membranes: Intact FETUS A EGA: 40.2 Monitoring: External US FHR- Baseline: 125 Variability: Moderate 6-25bpm Accelerations: 15X15 Decelerations: None FHR Category: Category I Presentation: Vertex PLANS FOR LABOR AND DELIVERY Labor and Delivery: None Pain Management: Epidural Feeding Preference: Breast Benefit of Breast Feed Discussed: Yes Circumcision: N/A INFORMED CONSENT Signature: with User ID: [email or web address]
[2017-07-21] MEDS: FAMOTIDINE 20 MG TABLET PO PRN ×3 (03:08→22:34)
[2017-07-21] MEDS: IBUPROFEN 800 MG TABLET PO SCH ×3 (06:10→22:34)
[2017-07-21 07:44] LABS: HEMATOCRIT 21.7 % (36.0-47.0); MEAN CORPUSCULAR HEMOGLOBIN 24.7 pg (27.0-33.4); MEAN CORPUSCULAR HGB CONC 32.6 g/dL (32.0-36.0); MEAN CORPUSCULAR VOLUME 76 fl (80-97); PLATELET COUNT 201 10^3/uL (150-450); RED BLOOD COUNT 2.86 10^6/uL (3.72-5.28); RED CELL DISTRIBUTION WIDTH 16.9 % (11.5-14.0); WHITE BLOOD COUNT 12.3 10^3/uL (4.0-10.5)
[2017-07-21 08:32] LABS: HEMOGLOBIN 7.1 g/dL (12.0-15.5)
[2017-07-21] MEDS: DOCUSATE SODIUM 100 MG CAPSULE PO SCH ×2 (09:41→17:24)
[2017-07-21] MEDS: PRENATAL VITAMIN W DHA CAPSULE PO SCH (09:41)
[2017-07-21] MEDS: SENNOSIDES/DOCUSATE 8.6-50 MG 1 EACH TABLET PO SCH (09:41)
[2017-07-21] MEDS: FERROUS SULFATE 325 MG TABLET PO SCH ×2 (09:42→17:23)
[2017-07-22] MEDS: IBUPROFEN 800 MG TABLET PO SCH (06:09)
[2017-07-22 08:26] VITALS: BP 122/71
--- NOTE | 2017-07-22 09:11 | PDOC DISCHARGE SUMMARY ---
Final Diagnosis Discharge Date: 07/22/17 - Final Diagnosis (1) Anxiety Is this a current diagnosis for this admission?: Yes (2) Neck mass Is this a current diagnosis for this admission?: Yes (3) Post traumatic stress disorder Is this a current diagnosis for this admission?: Yes (4) Acute blood loss anemia Is this a current diagnosis for this admission?: Yes (5) Vaginal delivery Is this a current diagnosis for this admission?: Yes Discharge Data - Discharge Medication Prescriptions: Docusate Sodium [Colace 100 mg Capsule] 100 mg PO BID #60 capsule Ferrous Sulfate [Feosol 325 mg Tablet] 325 mg PO BID #60 tablet Ibuprofen [Motrin 800 mg Tablet] 800 mg PO Q8 #60 tablet Home Medications: Docusate Sodium [Colace 100 mg Capsule] 100 mg PO BID #60 capsule 07/22/17 Ferrous Sulfate [Feosol 325 mg Tablet] 325 mg PO BID #60 tablet 07/22/17 Ibuprofen [Motrin 800 mg Tablet] 800 mg PO Q8 #60 tablet 07/22/17 Gestational Age: 40 Reason(s) for Admission: Onset of Labor Procedures: NST Intrapartum Procedure(s): Spontaneous Vaginal Delivery - [place] Data Baby 1 Female Home with Mother: Yes Complications: No - Diagnosis Test Laboratory: Temp Pulse Resp BP Pulse Ox 98.0 F 72 15 122/71 100 07/22/17 08:04 07/22/17 08:04 07/22/17 08:04 07/22/17 08:04 07/22/17 08:04 07/20/17 07/20/17 07/21/17 12:25 13:30 07:28 RBC 3.78 2.86 L Hgb 9.4 L 7.1 L D Hct 28.4 L 21.7 L Urine Opiates Screen NEGATIVE - Discharge information/Instructions Discharge Activity: Activity As Tolerated, Pelvic Rest, No tub bath Discharge Diet: Regular Disposition: HOME, SELF-CARE Follow up with: [facility] in: 4, Weeks
[2017-07-22] MEDS: PRENATAL VITAMIN W DHA CAPSULE PO SCH (10:01)
[2017-07-22] MEDS: SENNOSIDES/DOCUSATE 8.6-50 MG 1 EACH TABLET PO SCH (10:02)
[2017-07-22] MEDS: DOCUSATE SODIUM 100 MG CAPSULE PO SCH (10:02)
[2017-07-22] MEDS: FERROUS SULFATE 325 MG TABLET PO SCH (10:02)
[2017-07-22] MEDS: FAMOTIDINE 20 MG TABLET PO PRN (10:03)
--- NOTE | 2017-08-29 15:26 | Delivery Summary ---
Del Sum A-C Datetime Report Generated by CPN: 08/29/2017 15:26 DELIVERY PERSONNEL DELIVERY PERSONNEL: [id number] Delivery Doctor:: Robyn Levy MD Labor and Delivery Nurse:: Rola Alvarez RNcasting molder Nurse:: Nadia Johnson RN Nursery Nurse:: Jazmyn Pierson RN Certified Family Mediator/THEATRE PROFESSOR: Luis Alberto Severino, BAND TUMBLER MATERNAL INFORMATION Delivery Anesthesia: Epidural Medications During Delivery: none Medications After Delivery: Pitocin Bolus-Please Comment; Pitocin Drip 20 Units/1000ml NSS Meds After Delivery Comment: pitocin 20 units in 1 L NS bolusing per order Estimated Blood Loss (ml): 100 Maternal Complications: None Provider Comments: Pt C_P. Head delivered OA. Anterior and posterior shoulder delivered followed by rest of body. Baby placed on mom's abdomen. After 1min, cord clamped x 2 and cut by FOB. Placenta delivered intact with 3VC. Lacs repaired as above. LABOR SUMMARY EDC: 07/18/2017 00:00 No. Babies in Womb: 1 Attempted: No Labor Anesthesia: Epidural LABOR INFORMATION Reason for Induction: Not Applicable Onset of Labor: 07/20/2017 07:30 Complete Dilatation: 07/20/2017 18:32 Oxytocin: Augmentation Group B Beta Strep: negative Antibiotics # of Doses: 0 Steroids Given: None Reason Steroids Not Administered: Not Applicable MEMBRANES Membranes Rupture Method: Spontaneous Rupture of Membranes: 07/20/2017 17:46 Length of Rupture (hr): 0.88 Amniotic Fluid Color: Clear Amniotic Fluid Amount: Small Amniotic Fluid Odor: Normal STAGES OF LABOR Stage 1 hr: 11 Stage 1 min: 2 Stage 2 hr: 0 Stage 2 min: 7 Stage 3 hr: 0 Stage 3 min: 8 Total Time in Labor hr: 11 Total Time in Labor min: 17 VAGINAL DELIVERY Episiotomy: None Laceration #1: Perineal; Periurethral Laceration Extension #1: N/A Laceration Repair: Yes Laceration Repair Note: Superficial perineal and periurethral abrasions reapproximated with 3.0 Vicryl in interrupted fashion. Sponge Count Correct: Yes Sharps Count Correct: Yes CSECTION DELIVERY Primary Indication: N/A Secondary Indication: N/A CSection Urgency: N/A CSection Incidence: N/A Labor: N/A Elective: N/A CSection Incision: N/A BABY A INFORMATION Infant Delivery Date/Time: 07/20/2017 18:39 Method of Delivery: Vaginal Born in Route : No : N/A Forceps: N/A Vacuum Extraction: N/A Shoulder Dystocia : No PRESENTATION/POSITION BABY A Presentation: Cephalic Cephalic Presentation: Vertex Vertex Position: Right Occipital Anterior Breech Presentation: N/A PLACENTA INFORMATION BABY A Placenta Delivery Time : 07/20/2017 18:47 Placenta Method of Delivery: Spontaneous Placenta Method of Delivery: Spontaneous Placenta Status: Delivered SCORES BABY A Heart Rate 1 min: >100 bpm Resp Effort 1 min: Good Cry Reflex Irritability 1 min: Cough or Sneeze or Pulls Away Muscle Tone 1 min: Active Motion Color 1 min: Blue/Pale Resuscitation Effort 1 min: Tactile Stimulation SCORE 1 MIN: 8 Heart Rate 5 min: >100 bpm Resp Effort 5 min: Good Cry Reflex Irritability 5 min: Cough or Sneeze or Pulls Away Muscle Tone 5 min: Active Motion Color 5 min: Completely Silvis Resuscitation Effort 5 min: N/A SCORE 5 MIN: 10 INFORMATION BABY A Gestational Age at Delivery: 40.2 Gestational Status: Full Term- 39- 40.6 Weeks Outcome : Liveborn Infant Condition : Stable Sex: Female IDENTIFICATION BABY A Infant Verification Date/Time: 07/20/2017 19:51 ID Band Number: [id number] Mother's Name Verified: Yes RN Verifying : Christian, A. RN Additional Verifying Personnel: K. Noe RN WEIGHT/LENGTH BABY A Infant Birthweight (gm): 3990 Weight (lb): 8 Weight (oz): 13 Length (in): 20.50 Length (cm): 52.07 CORD INFORMATION BABY A No. Cord Vessels: 3 Nuchal Cord : N/A Cord Blood Taken: Yes-For Storage (Mom's Blood type +) Suction: None ASSESSMENT BABY A Complications: None Physical Findings at Delivery: Within Normal Limits Respirations: Appears Normal Skin to Skin: Yes Bulldozer/Loader/Compactor/Scraper/ALS Called : No Care By: H Dangelo RN Transferred To: Remains with Mother BABY B INFORMATION : N/A SIGNATURES Signature: with User ID: [email or web address]
== END 2017-07-22 11:04 | disposition home or self-care (01) | DRG 812 ==
LOC: LC 12:20 → LR 13:01 → 2S 21:00
PROVIDERS: ADMIT Obstetrics & Gynecology; ATTEND Obstetrics & Gynecology
PROC: 10E0XZZ Delivery of Products of Conception, External Approach (ICD-10-PCS; principal; 2017-07-20)
PROC: 0HQ9XZZ Repair Perineum Skin, External Approach (ICD-10-PCS; 2017-07-20)
PROC: 0UQMXZZ Repair Vulva, External Approach (ICD-10-PCS; 2017-07-20)
PROC: 4A1HXCZ Monitoring of Products of Conception, Cardiac Rate, External Approach (ICD-10-PCS; 2017-07-20)
DX: D62 Acute posthemorrhagic anemia (principal); O99.344 Other mental disorders complicating childbirth; F41.9 Anxiety disorder, unspecified; F43.10 Post-traumatic stress disorder, unspecified; O99.02 Anemia complicating childbirth; O70.0 First degree perineal laceration during delivery; O71.82 Other specified trauma to perineum and vulva; Z87.891 Personal history of nicotine dependence; Z3A.40 40 weeks gestation of pregnancy; Z37.0 Single live birth
CPT/HCPCS: 36415; 59025; 80307; 81005; 84112; 85025; 85027; 86592; 86850; 86900; 86901; J2590; J3490